=== PATIENT | male | born 1945 | race Caucasian/White ===

== ENCOUNTER 2023-02-06 15:02 | Inpatient (IN) ==
[2023-02-06] MEDS ORDERED: ALBUT/IPRATROP 3MG/0.5MG NEB 3 ML VIAL NEB STA (16:05)
[2023-02-06] MEDS ORDERED: CEFEPIME 2,000 MG/20 ML VIAL IV STA (16:06)
--- NOTE | 2023-02-06 16:25 | Emergency Department Note ---
Impression & Plan Pulmonary edema, Pneumonia, Acute non-ST elevation myocardial infarction (NSTEMI), Hypoxia, Respiratory failure, Acidosis, lactic, Acidosis, metabolic, COVID-19 virus infection ED Provider Note NAME: MAURICIO HALE AGE: 77 SEX: M : 1945 ARRIVES VIA: Ambulance INFORMANT: Patient, EMS report ED PROVIDER(S): Gregorio Garner DO CHIEF COMPLAINT: Difficulty breathing HPI: The patient is a 77-year-old male who presented to the emergency department for an evaluation of difficulty breathing. The patient was experiencing difficulty breathing over the course of the last few days. According to the prehospital personnel the patient has not left his bedroom in 2 days. There was no reported fall the patient was confused upon arrival and appeared to be in significant shortness of breath. He was tachypneic. He was covered in stool. ROS: See above HPI for pertinent positives & negatives. A total of 10 systems reviewed and were otherwise negative. PAST MEDICAL HISTORY: See Below PAST SURGICAL HISTORY: See Below FAMILY HISTORY: See Below SOCIAL HISTORY: See Below HOME MEDICATIONS: See Below ALLERGIES: See Below VITALS: See Below PHYSICAL EXAMINATION: GENERAL: The patient is awake and alert. He is very anxious appearing. EYES: The conjunctivae are clear. The pupils are round and reactive. EARS, NOSE, MOUTH AND THROAT: The nose is without any evidence of any deformity. NECK: The neck is nontender and supple. There is no JVD. RESPIRATORY: Diminished breath sounds are noted throughout. There is significant retractions. There is scattered wheezing in the upper lung mas. CARDIOVASCULAR: Regular rate and rhythm noted there no murmurs rubs or gallops normal S1 normal S2. GASTROINTESTINAL: The abdomen is soft. Abdomen is nontender. Stool was heme- negative. MUSCULOSKELETAL/EXTREMITIES: There is no evidence of gross deformity full range of motion is noted in the hips and shoulders. SKIN: Pedal edema was noted bilaterally. NEUROLOGIC: Patient is awake and oriented to person only. He was not oriented to place or situation. Strength was symmetric. MEDICAL DECISION MAKING: The patient is a 77-year-old male who presented to the emergency department for an evaluation of difficulty breathing. The patient reportedly had acute onset of symptoms but he was in bed for the last few days. Family members have been sick as well but they have also been in the hospital. This evening the patient's symptoms became much worse. He did not want to come to the hospital according to his son he was sent to the emergency room by ambulance. The patient has a DNR order that was reviewed by myself with the nursing staff as well as with the patient's son. He does not want intubation. The patient was treated with IV fluids. He was found have a lactic acidosis. His initial presentation appeared to be consistent more with pneumonia possible COPD exacerbation. EKG was revealing a right bundle branch block pattern which was not new but his troponin was very elevated. The patient was further treated in the emergency department with BiPAP. He was treated also with steroids and DuoNeb therapy. The patient's condition is very tenuous at this time but he seems to be holding his own. I discussed the patient's condition with the on- call [facility] hospitalist. They have agreed to evaluate the patient in the emergency department. Triage Nursing notes reviewed. Prior medical records reviewed Vital Signs: reviewed and remarkable for hypoxia and tachypnea Differential diagnosis: Reactive airway disease, pneumonia, pneumothorax, COPD, CHF, infections, cardiac ischemia, pulmonary embolism, musculoskeletal, gastrointestinal, as well as other pathologies. ER treatment provided: See below Diagnostics interpreted by me: ECG: EKG was obtained in the emergency department. My interpretation is sinus tachycardia 123 bpm. Right bundle branch block pattern was noted. This was compared to a tracing from December 19, 2021. The right bundle branch block pattern was present previously. Otherwise increased in the heart rate was noted. Cardiac Monitoring: An order was placed for continuous cardiac monitoring. The monitor shows a rate of 92 bpm with sinus rhythm. Laboratory studies: As stated above and show below. Imaging studies: See below. Radiographic imaging was reviewed by myself Consultation(s): Dr. Moses was notified about the patient. He will evaluate the patient in the emergency department ED COURSE: Procedures: none Critical Care: I have personally spent greater than 45 minutes of critical care time in the direct management of this patient. This includes bedside care, interpretation of diagnostic studies, and testing, discussion with consultants, patient, and family members, and other required patient management activities. This 45 minutes is in excess of all separately billable procedures. Past Med/Surg History Medical History HTN (hypertension) Fracture of transverse process of lumbar vertebra Multiple rib fractures Recurrent falls SAH (subarachnoid hemorrhage) Social History Smoking Status: Former smoker Feels Safe at Home: Yes Allergies Allergies Allergy/AdvReac Type Severity Reaction Status Date / Time No Known Allergies Allergy Verified 12/19/21 16:58 Home Meds Home Medications Medication Instructions Recorded Confirmed amlodipine 10 mg tablet 10 mg PO DAILY 12/19/21 12/19/21 aspirin 81 mg tablet,delayed 81 mg PO DAILY 12/19/21 12/19/21 release atenolol 25 mg tablet 25 mg PO DAILY 12/19/21 12/19/21 atorvastatin 80 mg tablet 80 mg PO HS 12/19/21 12/19/21 cholecalciferol (vitamin D3) 25 50 mcg PO DAILY 12/19/21 12/19/21 mcg (1,000 unit) capsule (Vitamin D3) docusate sodium 100 mg capsule 100 mg PO DAILY PRN Constipation 12/19/21 12/19/21 donepezil 5 mg tablet 5 mg PO HS 12/19/21 12/19/21 finasteride 5 mg tablet 5 mg PO DAILY 12/19/21 12/19/21 glatiramer 40 mg/mL subcutaneous 40 mg subcut 3XWK 12/19/21 12/19/21 syringe sertraline 100 mg tablet 100 mg PO DAILY 12/19/21 12/19/21 zolpidem 5 mg tablet (Ambien) 5 mg PO HS 12/19/21 12/19/21 Results & Data (ED) Vital Signs Vital Signs - 24 hr 02/06/23 15:02 02/06/23 15:11 02/06/23 15:20 Temperature 36.9 C Temperature Source Oral Pulse Rate 108 H 103 H 101 H Pulse Rate [Right Finger] Pulse Rate from SpO2 Sensor 100 H Respiratory Rate 30 H 29 H 27 H Respiratory Effort / Characteristics Non-Labored Respiratory Depth Normal Respiratory Pattern Regular Blood Pressure 162/115 H Blood Pressure [Right Arm] Blood Pressure Mean 130 Blood Pressure Mean [Right Arm] Pulse Oximetry 84 L 87 L Oxygen Delivery Method Room Air Fraction of Inspired Oxygen Sepsis Recent Fever Within 48 Hours Yes Sepsis New/Unexplained Change in Mental Status No Sepsis Action Taken by Nursing Physician Notified 02/06/23 15:30 02/06/23 15:40 02/06/23 15:50 Temperature Temperature Source Pulse Rate 97 H 96 H 101 H Pulse Rate [Right Finger] Pulse Rate from SpO2 Sensor 96 H 96 H 101 H Respiratory Rate 29 H 29 H 29 H Respiratory Effort / Characteristics Respiratory Depth Respiratory Pattern Blood Pressure Blood Pressure [Right Arm] Blood Pressure Mean Blood Pressure Mean [Right Arm] Pulse Oximetry 91 92 91 Oxygen Delivery Method Fraction of Inspired Oxygen Sepsis Recent Fever Within 48 Hours Sepsis New/Unexplained Change in Mental Status Sepsis Action Taken by Nursing 02/06/23 16:00 02/06/23 16:10 02/06/23 16:15 Temperature Temperature Source Pulse Rate 120 H 126 H Pulse Rate [Right Finger] Pulse Rate from SpO2 Sensor 118 H 127 H Respiratory Rate 22 23 Respiratory Effort / Characteristics Respiratory Depth Respiratory Pattern Blood Pressure Blood Pressure [Right Arm] Blood Pressure Mean Blood Pressure Mean [Right Arm] Pulse Oximetry 89 L 86 L Oxygen Delivery Method Fraction of Inspired Oxygen Sepsis Recent Fever Within 48 Hours Sepsis New/Unexplained Change in Mental Status Sepsis Action Taken by Nursing 02/06/23 16:20 02/06/23 16:25 02/06/23 16:25 Temperature Temperature Source Pulse Rate 121 H Pulse Rate [Right Finger] Pulse Rate from SpO2 Sensor 125 H 114 H Respiratory Rate 21 17 Respiratory Effort / Characteristics Respiratory Depth Respiratory Pattern Blood Pressure 147/101 H Blood Pressure [Right Arm] Blood Pressure Mean 117 Blood Pressure Mean [Right Arm] Pulse Oximetry 80 L 80 L Oxygen Delivery Method Fraction of Inspired Oxygen Sepsis Recent Fever Within 48 Hours Sepsis New/Unexplained Change in Mental Status Sepsis Action Taken by Nursing 02/06/23 16:30 02/06/23 16:40 02/06/23 16:50 Temperature Temperature Source Pulse Rate 120 H 115 H 112 H Pulse Rate [Right Finger] Pulse Rate from SpO2 Sensor 124 H 115 H 112 H Respiratory Rate 18 18 18 Respiratory Effort / Characteristics Respiratory Depth Respiratory Pattern Blood Pressure Blood Pressure [Right Arm] Blood Pressure Mean Blood Pressure Mean [Right Arm] Pulse Oximetry 78 L 79 L 64 L Oxygen Delivery Method Fraction of Inspired Oxygen Sepsis Recent Fever Within 48 Hours Sepsis New/Unexplained Change in Mental Status Sepsis Action Taken by Nursing 02/06/23 16:54 02/06/23 16:54 02/06/23 16:56 Temperature Temperature Source Pulse Rate 91 H Pulse Rate [Right Finger] Pulse Rate from SpO2 Sensor 90 Respiratory Rate 18 Respiratory Effort / Characteristics Respiratory Depth Respiratory Pattern Blood Pressure 101/68 100/82 Blood Pressure [Right Arm] Blood Pressure Mean 87 85 Blood Pressure Mean [Right Arm] Pulse Oximetry 63 L Oxygen Delivery Method Fraction of Inspired Oxygen Sepsis Recent Fever Within 48 Hours Sepsis New/Unexplained Change in Mental Status Sepsis Action Taken by Nursing 02/06/23 16:56 02/06/23 17:00 02/06/23 17:00 Temperature Temperature Source Pulse Rate 91 H 115 H Pulse Rate [Right Finger] Pulse Rate from SpO2 Sensor 90 115 H Respiratory Rate 17 22 Respiratory Effort / Characteristics Respiratory Depth Respiratory Pattern Blood Pressure 137/109 H Blood Pressure [Right Arm] Blood Pressure Mean 113 Blood Pressure Mean [Right Arm] Pulse Oximetry 64 L 93 Oxygen Delivery Method Fraction of Inspired Oxygen Sepsis Recent Fever Within 48 Hours Sepsis New/Unexplained Change in Mental Status Sepsis Action Taken by Nursing 02/06/23 17:10 02/06/23 17:18 02/06/23 17:18 Temperature Temperature Source Pulse Rate 107 H 98 H Pulse Rate [Right Finger] Pulse Rate from SpO2 Sensor 107 H 90 Respiratory Rate 34 H 16 Respiratory Effort / Characteristics Respiratory Depth Respiratory Pattern Blood Pressure 107/72 Blood Pressure [Right Arm] Blood Pressure Mean 82 Blood Pressure Mean [Right Arm] Pulse Oximetry 79 L 65 L Oxygen Delivery Method Fraction of Inspired Oxygen Sepsis Recent Fever Within 48 Hours Sepsis New/Unexplained Change in Mental Status Sepsis Action Taken by Nursing 02/06/23 17:20 02/06/23 17:30 02/06/23 17:31 Temperature Temperature Source Pulse Rate 98 H 95 H 90 Pulse Rate [Right Finger] Pulse Rate from SpO2 Sensor 99 H 95 H Respiratory Rate 18 16 18 Respiratory Effort / Characteristics Spontaneous Respiratory Depth Shallow Respiratory Pattern Blood Pressure Blood Pressure [Right Arm] Blood Pressure Mean Blood Pressure Mean [Right Arm] Pulse Oximetry 76 L 79 L 72 L Oxygen Delivery Method Fraction of Inspired Oxygen 100 Sepsis Recent Fever Within 48 Hours Sepsis New/Unexplained Change in Mental Status Sepsis Action Taken by Nursing 02/06/23 17:38 Temperature Temperature Source Pulse Rate Pulse Rate [Right Finger] 92 H Pulse Rate from SpO2 Sensor Respiratory Rate 32 H Respiratory Effort / Characteristics Gasping/Agonal Respiratory Depth Respiratory Pattern Blood Pressure Blood Pressure [Right Arm] 107/72 Blood Pressure Mean Blood Pressure Mean [Right Arm] 83 Pulse Oximetry 82 L Oxygen Delivery Method BiPAP Fraction of Inspired Oxygen Sepsis Recent Fever Within 48 Hours Sepsis New/Unexplained Change in Mental Status Sepsis Action Taken by Group Home Medications Current Medication List: was personally reviewed by wi Laboratory Data Attestation: I reviewed the patient's lab results. 02/06/23 16:15 02/06/23 16:15 Lab Results 02/06/23 02/06/23 02/06/23 Range/Units 16:09 16:15 16:27 WBC 13.26 H (4.8-10.8) K/ul RBC 4.42 L (4.70-6.10) M/uL Hgb 12.5 L (14.0-18.0) g/dl POC Hgb 12.9 L (14.0-18.0) g/dl Hct 39.7 L (42.0-52.0) % POC Hct 38 L (42-52) % MCV 89.8 (80.0-100.0) fL MCH 28.3 (25.0-34.0) pg MCHC 31.5 L (32.0-36.0) g/dL RDW Std Deviation 47.7 H (36.4-46.3) fL RDW Coeff of Karthikeyna 14.6 H (11.5-14.5) % Plt Count 202 (130-400) K/uL MPV 10.2 (9.4-12.4) fL Immature Gran % (Auto) 0.5 % Neut % (Auto) 87.8 % Lymph % (Auto) 6.1 % [place] % (Auto) 5.4 % Eos % (Auto) 0.0 % Baso % (Auto) 0.2 % Neut # (Auto) 11.65 H (1.40-6.50) K/uL Lymph # (Auto) 0.81 L (1.20-3.40) K/uL [place] # (Auto) 0.71 H (0.11-0.59) K/uL Eos # (Auto) 0.00 (0.00-0.50) K/uL Baso # (Auto) 0.03 (0.00-0.20) K/uL Immature Gran # (Auto) 0.06 (0.01-0.20) K/uL PT 11.9 (9.0-12.0) Seconds INR 1.1 (0.9-1.1) APTT 36 H (21-31) Seconds PTT Ratio 1.3 VBG pH (7.36-7.41) VBG pCO2 (38-50) mmHg VBG pO2 mmHg VBG HCO3 mmol/L VBG O2 Saturation % VBG Base Excess mEq/L POC Sodium 140 (135-144) mmol/L Sodium 140 (136-145) mmol/L POC Potassium 4.6 (3.3-5.0) mmol/L Potassium 4.6 (3.5-5.1) mmol/L POC Chloride 112 (101-112) mmol/L Chloride 108 H (98-107) mmol/L Carbon Dioxide 17 L (21-32) mmol/L POC Total CO2 18 L (24-31) mmol/L Anion Gap 15 H (3-11) POC Anion Gap 16.0 (16-25) mmol/L POC BUN 36 H (7-18) mg/dl BUN 40 H (6-23) mg/dl Creatinine 3.10 H (0.6-1.4) mg/dl POC Creatinine 3.4 H (0.6-1.3) mg/dl Est Cr Clr Drug Dosing Not Reportable Est GFR ( Amer) 21.0 ml/min Est GFR (Non-Af Amer) 18.1 ml/min BUN/Creatinine Ratio 12.9 (10-20) Glucose 146 H (70-99(Fasting)) mg/dl POC Glucose (other) 152 H (70-99) mg/dl Lactate 4.6 H* (0.4-2.0) mmol/L Calcium 10.4 H (8.6-10.3) mg/dl POC Ioniz Calcium Kylie 1.35 H (1.12-1.32) mmol/l Magnesium 2.0 (1.7-2.4) mg/dl Total Bilirubin 0.7 (0.2-1.0) mg/dl Direct Bilirubin 0.2 (0-0.2) mg/dl AST 94 H (13-39) U/L ALT 25 (7-52) U/L Alkaline Phosphatase 71 (34-104) U/L Total Creatine Kinase 1004 H (30-223) U/L Troponin I High Sens 77127.0 H* (0-20) pg/ml B-Natriuretic Peptide > 4700 H (0-100) pg/ml Total Protein 7.4 (6.0-8.3) gm/dl Albumin 4.3 (3.4-5.0) gm/dl Procalcitonin 0.45 (0-0.5) ng/ml Urine Color Yellow Urine Appearance Clear (Clear) Urine pH 5.0 (4.5-7.5) Ur Specific Bulger 1.021 (1.000-1.030) Urine Protein 3+ H (Negative) Urine Glucose (UA) Trace H (Negative) Urine Ketones Negative (Negative) Urine Blood 1+ H (Negative) Urine Nitrite Negative (Negative) Urine Bilirubin Negative (Negative) Urine Urobilinogen Negative (Negative) Ur Leukocyte Esterase Negative (Negative) Urine WBC (Auto) 10-30 H (0-5) /hpf Urine RBC (Auto) 0-4 (0-4) /hpf U Hyaline Cast (Auto) 5-10 H (0-5) /lpf U Epithel Cells (Auto) >30 H (0-5) /lpf Urine Bacteria (Auto) Negative (Negative) Urine Yeast Not Reportable Adenovirus (PCR) (NotDetected) B. pertussis DNA (PCR) (NotDetected) B.parapertussis DNA PCR (NotDetected) C. pneumoniae DNA (PCR) (NotDetected) Coronavirus OC43 (PCR) (NotDetected) Coronavirus HKU1 (PCR) (NotDetected) Coronavirus 229E (PCR) (NotDetected) SARS-CoV-2 (PCR) (NotDetected) Coronavirus NL63 (PCR) (NotDetected) Human Metapneumovir PCR (NotDetected) Influenza Type A (PCR) (NotDetected) Influenza Type B (PCR) (NotDetected) M. pneumoniae (PCR) (NotDetected) Parainfluenza 1 (PCR) (NotDetected) Parainfluenza 2 (PCR) (NotDetected) Parainfluenza 3 (PCR) (NotDetected) Parainfluenza 4 (PCR) (NotDetected) RSV (PCR) (NotDetected) Entero/Rhino (PCR) (NotDetected) 02/06/23 02/06/23 Range/Units 16:46 17:03 WBC (4.8-10.8) K/ul RBC (4.70-6.10) M/uL Hgb (14.0-18.0) g/dl POC Hgb (14.0-18.0) g/dl Hct (42.0-52.0) % POC Hct (42-52) % MCV (80.0-100.0) fL MCH (25.0-34.0) pg MCHC (32.0-36.0) g/dL RDW Std Deviation (36.4-46.3) fL RDW Coeff of Karthikeyan (11.5-14.5) % Plt Count (130-400) K/uL MPV (9.4-12.4) fL Immature Gran % (Auto) % Neut % (Auto) % Lymph % (Auto) % [place] % (Auto) % Eos % (Auto) % Baso % (Auto) % Neut # (Auto) (1.40-6.50) K/uL Lymph # (Auto) (1.20-3.40) K/uL [place] # (Auto) (0.11-0.59) K/uL Eos # (Auto) (0.00-0.50) K/uL Baso # (Auto) (0.00-0.20) K/uL Immature Gran # (Auto) (0.01-0.20) K/uL PT (9.0-12.0) Seconds INR (0.9-1.1) APTT (21-31) Seconds PTT Ratio VBG pH 7.05 L (7.36-7.41) VBG pCO2 61 H (38-50) mmHg VBG pO2 49 mmHg VBG HCO3 17 mmol/L VBG O2 Saturation 65.9 % VBG Base Excess -14.1 mEq/L POC Sodium (135-144) mmol/L Sodium (136-145) mmol/L POC Potassium (3.3-5.0) mmol/L Potassium (3.5-5.1) mmol/L POC Chloride (101-112) mmol/L Chloride (98-107) mmol/L Carbon Dioxide (21-32) mmol/L POC Total CO2 (24-31) mmol/L Anion Gap (3-11) POC Anion Gap (16-25) mmol/L POC BUN (7-18) mg/dl BUN (6-23) mg/dl Creatinine (0.6-1.4) mg/dl POC Creatinine (0.6-1.3) mg/dl Est Cr Clr Drug Dosing Est GFR ( Amer) ml/min Est GFR (Non-Af Amer) ml/min BUN/Creatinine Ratio (10-20) Glucose (70-99(Fasting)) mg/dl POC Glucose (other) (70-99) mg/dl Lactate (0.4-2.0) mmol/L Calcium (8.6-10.3) mg/dl POC Ioniz Calcium Kylie (1.12-1.32) mmol/l Magnesium (1.7-2.4) mg/dl Total Bilirubin (0.2-1.0) mg/dl Direct Bilirubin (0-0.2) mg/dl AST (13-39) U/L ALT (7-52) U/L Alkaline Phosphatase (34-104) U/L Total Creatine Kinase (30-223) U/L Troponin I High Sens (0-20) pg/ml B-Natriuretic Peptide (0-100) pg/ml Total Protein (6.0-8.3) gm/dl Albumin (3.4-5.0) gm/dl Procalcitonin (0-0.5) ng/ml Urine Color Urine Appearance (Clear) Urine pH (4.5-7.5) Ur Specific Bul[place] (1.000-1.030) Urine Protein (Negative) Urine Glucose (UA) (Negative) Urine Ketones (Negative) Urine Blood (Negative) Urine Nitrite (Negative) Urine Bilirubin (Negative) Urine Urobilinogen (Negative) Ur Leukocyte Esterase (Negative) Urine WBC (Auto) (0-5) /hpf Urine RBC (Auto) (0-4) /hpf U Hyaline Cast (Auto) (0-5) /lpf U Epithel Cells (Auto) (0-5) /lpf Urine Bacteria (Auto) (Negative) Urine Yeast Adenovirus (PCR) Not Detected (NotDetected) B. pertussis DNA (PCR) Not Detected (NotDetected) B.parapertussis DNA PCR Not Detected (NotDetected) C. pneumoniae DNA (PCR) Not Detected (NotDetected) Coronavirus OC43 (PCR) Not Detected (NotDetected) Coronavirus HKU1 (PCR) Not Detected (NotDetected) Coronavirus 229E (PCR) Not Detected (NotDetected) SARS-CoV-2 (PCR) DETECTED A* (NotDetected) Coronavirus NL63 (PCR) Not Detected (NotDetected) Human Metapneumovir PCR Not Detected (NotDetected) Influenza Type A (PCR) Not Detected (NotDetected) Influenza Type B (PCR) Not Detected (NotDetected) M. pneumoniae (PCR) Not Detected (NotDetected) Parainfluenza 1 (PCR) Not Detected (NotDetected) Parainfluenza 2 (PCR) Not Detected (NotDetected) Parainfluenza 3 (PCR) Not Detected (NotDetected) Parainfluenza 4 (PCR) Not Detected (NotDetected) RSV (PCR) Not Detected (NotDetected) Entero/Rhino (PCR) Not Detected (NotDetected) Administered Medications Discontinued Medications Albuterol (Albut/Ipratrop 3mg/0.5mg Neb 3 Ml Vial) 3 ml NEB NOW STA; Protocol Stop: 02/06/23 16:06 Last Admin: 02/06/23 16:32 Dose: 3 ml Documented By: GRETA Dexamethasone Sodium Phosphate (DexamethasonePf 10 Mg/Ml Vial) 10 mg IV NOW ONE Stop: 02/06/23 17:08 Last Admin: 02/06/23 17:25 Dose: 10 mg Documented By: GRETA Cefepime HCl (Maxipime) 2,000 mg in 20 mls @ 5 mls/min IV NOW STA; Protocol Stop: 02/06/23 16:09 Last Admin: 02/06/23 16:42 Dose: 5 mls/min Documented By: GRETA Sodium Chloride (Nss) 1,000 mls @ 999 mls/hr IV .[id number] ONE Stop: 02/06/23 17:36 Last Admin: 02/06/23 17:22 Dose: 999 mls/hr Documented By: GRETA Lorazepam (Lorazepam 1 Mg/1 Ml Syr Ed Inj Use) 1 mg IV ONE STA Stop: 02/06/23 16:32 Last Admin: 02/06/23 16:40 Dose: 1 mg Documented By: GRETA Imaging Data Attestation: I personally reviewed and interpreted this imaging study as follows: My Impression: 1 view chest x-ray was obtained in the emergency department. My interpretation is bilateral infiltrates with cardiomegaly. This could represent pneumonia versus asymmetric pulmonary edema, final report pending. Radiologist's Impression: Chest X-Ray 02/06/23 16:05 XR chest 1V portable HISTORY: Sepsis COMPARISON: Chest 12/19/2021. FINDINGS: No pneumothorax. The heart is mildly enlarged. There is interstitial thickening with patchy bilateral airspace opacities. Suspect a trace right pleural effusion. IMPRESSION: Interstitial thickening with patchy bilateral airspace opacities and a trace right pleural effusion. This likely represents a pneumonia. Superimposed pulmonary edema would be difficult to exclude. ACT 112: Negative or not required by law. Electronically signed by: Jacques Sharpe M.D. 02/06/2023 5:59 PM Discharge Plan Visit Data Chief Complaint: Illness Stated Complaint: RESP. DISTRESS, ILLNESS, FEVER ED Provider: Gregorio Garner Discharge Problem: Pulmonary edema, Pneumonia, Acute non-ST elevation myocardial infarction (NSTEMI), Hypoxia, Respiratory failure, Acidosis, lactic, Acidosis, metabolic, COVID-19 virus infection Patient Disposition: Being Evaluated by Hospitalist Forms Stand Alone Forms: My [facility] Prescriptions Prescriptions: No Action atorvastatin 80 mg Tablet 80 mg PO HS donepezil 5 mg Tablet 5 mg PO HS sertraline 100 mg Tablet 100 mg PO DAILY atenolol 25 mg Tablet 25 mg PO DAILY aspirin 81 mg Tablet,Delayed Release (Dr/Ec) 81 mg PO DAILY amlodipine 10 mg Tablet 10 mg PO DAILY docusate sodium 100 mg Capsule 100 mg PO DAILY PRN (Reason: Constipation) zolpidem [Ambien] 5 mg Tablet 5 mg PO HS finasteride 5 mg Tablet 5 mg PO DAILY cholecalciferol (vitamin D3) [Vitamin D3] 25 mcg (1,000 unit) Capsule 50 mcg PO DAILY glatiramer 40 mg/mL Syringe 40 mg SUBCUT [id number] Rx Instructions: WEDNESDAY, WEDNESDAY & FRIDAYS. Referrals Referrals: PCP,NO [Primary Care Provider] - Discharge Problem: Pulmonary edema Qualifiers: Chronicity: acute Qualified Code(s): J81.0 - Acute pulmonary edema Pneumonia Qualifiers: Pneumonia type: due to unspecified organism Laterality: bilateral Lung location: unspecified part of lung Qualified Code(s): J18.9 - Pneumonia, unspecified organism Respiratory failure Qualifiers: Chronicity: acute Respiratory failure complication: hypoxia and hypercapnia Q ualified Code(s): J96.01 - Acute respiratory failure with hypoxia
[2023-02-06 16:27] LABS: Appearance Urine Clear (Clear); Bacteria Urine Automated Negative (Negative); Bilirubin Urine Negative (Negative); Blood Urine 1+ (Negative); Color Urine Yellow; Epithelial Cell Urine Auto >30 /lpf (0-5); Glucose Urine UA Trace (Negative); Ketones Urine Negative (Negative); Leukocyte Esterase Urine Negative (Negative); Nitrite Urine Negative (Negative); Protein Urine 3+ (Negative); RBC Urine Automated 0-4 /hpf (0-4); Specific Gravity Urine 1.021 (1.000-1.030); Urobilinogen Urine Negative (Negative)
[2023-02-06] MEDS ORDERED: LORazepam 1 MG/1 ML SYR ED Inj Use IV STA (16:31)
[2023-02-06 16:35] LABS: Basophils # (auto) 0.03 K/uL (0.00-0.20); Basophils % (auto) 0.2 %; Hematocrit (blood only) 39.7 % (42.0-52.0); Hemoglobin 12.5 g/dl (14.0-18.0); Immature Granulocytes # (auto) 0.06 K/uL (0.01-0.20); Immature Granulocytes % (auto) 0.5 %; Lymphocytes # (auto) 0.81 K/uL (1.20-3.40); Lymphocytes % (auto) 6.1 %; Mean Corpuscular Hemoglobin 28.3 pg (25.0-34.0); Mean Corpuscular Hgb Conc 31.5 g/dL (32.0-36.0); Mean Corpuscular Volume 89.8 fL (80.0-100.0); Mean Platelet Volume 10.2 fL (9.4-12.4); Monocytes # (auto) 0.71 K/uL (0.11-0.59); Monocytes % (auto) 5.4 %; Neutrophils # (auto) 11.65 K/uL (1.40-6.50); Neutrophils % (auto) 87.8 %; Platelet Count 202 K/uL (130-400); RDW Coefficient of Variation 14.6 % (11.5-14.5); RDW Standard Deviation 47.7 fL (36.4-46.3); Red Blood Count 4.42 M/uL (4.70-6.10); White Blood Count 13.26 K/ul (4.8-10.8)
[2023-02-06] MEDS ORDERED: SODIUM CHLORIDE 0.9% 1,000 ML IV ONE (16:36)
[2023-02-06 16:39] LABS: iSTAT Creatinine 3.4 mg/dl (0.6-1.3); iSTAT Hemoglobin 12.9 g/dl (14.0-18.0); iSTAT Ionized Calcium 1.35 mmol/l (1.12-1.32); iSTAT Potassium 4.6 mmol/L (3.3-5.0)
[2023-02-06 16:53] LABS: Alanine Aminotransferase 25 U/L (7-52); Albumin Level 4.3 gm/dl (3.4-5.0); Alkaline Phosphatase 71 U/L (34-104); Anion Gap 15 (3-11); Aspartate Aminotransferase 94 U/L (13-39); BUN Creatinine Ratio 12.9 (10-20); Bilirubin Direct 0.2 mg/dl (0-0.2); Bilirubin,Total 0.7 mg/dl (0.2-1.0); Blood Urea Nitrogen 40 mg/dl (6-23); Calcium 10.4 mg/dl (8.6-10.3); Carbon Dioxide 17 mmol/L (21-32); Chloride 108 mmol/L (98-107); Est GFR (Non-African American) 18.1 ml/min; Glucose 146 mg/dl (70-99(Fasting)); Potassium 4.6 mmol/L (3.5-5.1); Sodium 140 mmol/L (136-145); Total Protein 7.4 gm/dl (6.0-8.3)
[2023-02-06 17:02] LABS: Base Excess VBG -14.1 mEq/L; HCO3 VBG 17 mmol/L; Oxygen Saturation VBG 65.9 %; PCO2 VBG 61 mmHg (38-50); PO2 VBG 49 mmHg; pH VBG 7.05 (7.36-7.41)
[2023-02-06 17:07] LABS: INR 1.1 (0.9-1.1); Partial Thromboplastin Ratio 1.3; Partial Thromboplastin Time 36 Seconds (21-31); Prothrombin Time 11.9 Seconds (9.0-12.0)
[2023-02-06] MEDS ORDERED: dexAMETHasone**PF** 10 MG/ML VIAL IV ONE (17:07)
[2023-02-06 17:52] LABS: Creatine Kinase 1004 U/L (30-223)
--- NOTE | 2023-02-06 18:00 | XRay Report ---
XR chest 1V portable HISTORY: Sepsis COMPARISON: Chest 12/19/2021. FINDINGS: No pneumothorax. The heart is mildly enlarged. There is interstitial thickening with patchy bilateral airspace opacities. Suspect a trace right pleural effusion. IMPRESSION: Interstitial thickening with patchy bilateral airspace opacities and a trace right pleural effusion. This likely represents a pneumonia. Superimposed pulmonary edema would be difficult to exclude. ACT 112: Negative or not required by law. Electronically signed by: Jacques Sharpe M.D. 02/06/2023 5:59 PM
[2023-02-06 18:01] LABS: Adenovirus PCR Not Detected (NotDetected); Bordetella parapertussis PCR Not Detected (NotDetected); Bordetella pertussis PCR Not Detected (NotDetected); Chlamydia pneumoniae PCR Not Detected (NotDetected); Coronavirus 229E PCR Not Detected (NotDetected); Coronavirus HKU1 PCR Not Detected (NotDetected); Coronavirus NL63 PCR Not Detected (NotDetected); Coronavirus OC43PCR Not Detected (NotDetected); Human Metapneumovirus PCR Not Detected (NotDetected); Influenza A PCR Not Detected (NotDetected); Influenza B PCR Not Detected (NotDetected); Mycoplasma pneumoniae PCR Not Detected (NotDetected); Parainfluenza Virus 1 PCR Not Detected (NotDetected); Parainfluenza Virus 2 PCR Not Detected (NotDetected); Parainfluenza Virus 3 PCR Not Detected (NotDetected); Parainfluenza Virus 4 PCR Not Detected (NotDetected); Respiratory Syncytial VirusPCR Not Detected (NotDetected); Rhinovirus/Enterovirus PCR Not Detected (NotDetected)
[2023-02-06 18:04] LABS: Coronavirus CoV-2 (COVID19)PCR DETECTED (NotDetected)
--- NOTE | 2023-02-06 22:29 | History & Physical Report ---
Date of Service February 06, 2023 Assessment & Plan (1) Comfort measures only status: Plan: Patient came in via BLS for generalized weakness, cough, and worsening SOB Accompanied by POLST form for DNR/DNI and noninvasive measures Hx of dementia + COVID on arrival CXR revealed interstitial thickening with patchy bilateral airspace opacities, that likely represented an overlying pneumonia BiPAP started in the ED Lactate 4.6-->4.6 BNP >4700 [place] [address].0 Spoke extensively with patient's son, both over the phone and in person, and re- confirmed that the patient would not like ICU level of care Agreed with family that the patient will be brought in on comfort measures Plan Patient is being brought in on comfort measures DNR/DNI History of Present Illness Chief Complaint: Illness Primary Care Provider: TANJA PCP Armando is a 77-year-old male with PMH of recurrent falls, MS, renal failure, dementia, HTN, pneumonia, and NSTEMI. Patient arrived via BLS for cough, fatigue, and generalized weakness that started the evening of 02/05. Patient was positive for COVID on arrival. Elevated lactate, troponin, BNP, creatinine kinase, WBC count on arrival. Patient was placed on BiPAP in the ED. He was unresponsive to stimuli at time of admission. He had an active POLST form for DNR/DNI. Called the patient's son (Armando) and discussed patient's wishes. We confirmed that, rather than ICU level of care and invasive procedures, patient would want comfort measures. ED course: BiPAP DuoNeb 3 mL Cefepime 2000 mg IV Ativan 1 mg IV Decadron 10 mg IV NSS 1000 mL IV ROS unobtainable in patient's current state; nonresponsive on BiPAP. Allergies Allergy/AdvReac Type Severity Reaction Status Date / Time No Known Allergies Allergy Verified 02/06/23 20:55 Home Medications Medication Instructions Recorded Confirmed Type amlodipine 10 mg tablet 10 mg PO DAILY 12/19/21 02/06/23 History atenolol 25 mg tablet 25 mg PO DAILY 12/19/21 02/06/23 History atorvastatin 80 mg tablet 80 mg PO HS 12/19/21 02/06/23 History cholecalciferol (vitamin D3) 25 50 mcg PO DAILY 12/19/21 02/06/23 History mcg (1,000 unit) capsule (Vitamin D3) finasteride 5 mg tablet 5 mg PO DAILY 12/19/21 02/06/23 History glatiramer 40 mg/mL subcutaneous 40 mg subcut 3XWK 12/19/21 02/06/23 History syringe sertraline 100 mg tablet 100 mg PO DAILY 12/19/21 02/06/23 History zolpidem 5 mg tablet (Ambien) 5 mg PO HS PRN Insomnia 12/19/21 02/06/23 History clonidine HCl 0.1 mg tablet 0.1 mg PO Q12H 02/06/23 02/06/23 History folic acid 1 mg tablet 1 mg PO DAILY 02/06/23 02/06/23 History hydralazine 25 mg tablet 75 mg PO BID 02/06/23 02/06/23 History losartan 25 mg tablet 25 mg PO DAILY 02/06/23 02/06/23 History Past Med/Surg History Medical History HTN (hypertension) Fracture of transverse process of lumbar vertebra Multiple rib fractures Recurrent falls SAH (subarachnoid hemorrhage) Social History Smoking Status: Former smoker Communication Ability: Unable Communication Ability Comment: obtunded Current Living Situation: Family Feels Safe at Home: Declines to Answer Assistive Devices: Hospital Bed Review of Systems Review of Systems: Unobtainable Physical Exam Physical Exam: General: Severe acute respiratory distress; on BiPAP; frail appearing; unresponsive to verbal commands and stimuli HEENT: normocephalic, atraumatic; eyes closed; dry mucus membrane; unable to assess vision or hearing Neck: supple; trachea midline Skin: warm, dry without signs of tenting; no rashes, bruising, lesions, or erythema noted CV: chest wall NTP; RRR; S1/S2 normal; no murmurs/rubs/gallops; pulses intact and symmetric at radial, DP, and PT Lungs: Labored breath sounds; acute respiratory distress; symmetrical chest wall expansion ABD: Soft, NTP; BS present MSK: no tics or fasciculations; no edema noted in the LEs b/l Neuro: Unresponsive to all stimuli; nonverbal; lethargic Results & Data Results & Data Vital Signs (Past 12 Hours) Vital Signs Temp Pulse Pulse Pulse Resp BP BP 02/06/23 21:30 84 02/06/23 21:27 86 14 02/06/23 20:30 83 14 80/56 L 02/06/23 20:00 84 14 87/45 L 02/06/23 19:02 84 14 82/66 L 02/06/23 17:38 92 H 32 H 107/72 02/06/23 17:31 90 18 02/06/23 17:30 95 H 16 02/06/23 17:20 98 H 18 02/06/23 17:18 98 H 16 02/06/23 17:18 107/72 02/06/23 17:10 107 H 34 H 02/06/23 17:00 137/109 H 02/06/23 17:00 115 H 22 02/06/23 16:56 91 H 17 02/06/23 16:56 100/82 02/06/23 16:54 101/68 02/06/23 16:54 91 H 18 02/06/23 16:50 112 H 18 02/06/23 16:40 115 H 18 02/06/23 16:30 120 H 18 02/06/23 16:25 147/101 H 02/06/23 16:25 121 H 17 02/06/23 16:20 21 02/06/23 16:15 126 H 02/06/23 16:10 23 02/06/23 16:00 120 H 22 02/06/23 15:50 101 H 29 H 02/06/23 15:40 96 H 29 H 02/06/23 15:30 97 H 29 H 02/06/23 15:20 101 H 27 H 02/06/23 15:11 103 H 29 H 02/06/23 15:02 36.9 C 108 H 30 H 162/115 H Pulse Ox O2 Del Method FiO2 02/06/23 21:30 02/06/23 21:27 87 L 100 02/06/23 20:30 89 L BiPAP 02/06/23 20:00 88 L BiPAP 02/06/23 19:02 88 L BiPAP 02/06/23 17:38 82 L BiPAP 02/06/23 17:31 72 L 100 02/06/23 17:30 79 L 02/06/23 17:20 76 L 02/06/23 17:18 65 L 02/06/23 17:18 02/06/23 17:10 79 L 02/06/23 17:00 02/06/23 17:00 93 02/06/23 16:56 64 L 02/06/23 16:56 02/06/23 16:54 02/06/23 16:54 63 L 02/06/23 16:50 64 L 02/06/23 16:40 79 L 02/06/23 16:30 78 L 02/06/23 16:25 02/06/23 16:25 80 L 02/06/23 16:20 80 L 02/06/23 16:15 02/06/23 16:10 86 L 02/06/23 16:00 89 L 02/06/23 15:50 91 02/06/23 15:40 92 02/06/23 15:30 91 02/06/23 15:20 87 L 02/06/23 15:11 02/06/23 15:02 84 L Room Air Laboratory Results Abnormal lab results 02/06/23 02/06/23 02/06/23 Range/Units 16:09 16:15 16:27 WBC 13.26 H (4.8-10.8) K/ul RBC 4.42 L (4.70-6.10) M/uL Hgb 12.5 L (14.0-18.0) g/dl POC Hgb 12.9 L (14.0-18.0) g/dl Hct 39.7 L (42.0-52.0) % POC Hct 38 L (42-52) % MCHC 31.5 L (32.0-36.0) g/dL RDW Std Deviation 47.7 H (36.4-46.3) fL RDW Coeff of Karthikeyan 14.6 H (11.5-14.5) % Neut # (Auto) 11.65 H (1.40-6.50) K/uL Lymph # (Auto) 0.81 L (1.20-3.40) K/uL Sac # (Auto) 0.71 H (0.11-0.59) K/uL APTT 36 H (21-31) Seconds VBG pH (7.36-7.41) VBG pCO2 (38-50) mmHg Chloride 108 H (98-107) mmol/L Carbon Dioxide 17 L (21-32) mmol/L POC Total CO2 18 L (24-31) mmol/L Anion Gap 15 H (3-11) POC BUN 36 H (7-18) mg/dl BUN 40 H (6-23) mg/dl Creatinine 3.10 H (0.6-1.4) mg/dl POC Creatinine 3.4 H (0.6-1.3) mg/dl Glucose 146 H (70-99(Fasting)) mg/dl POC Glucose (other) 152 H (70-99) mg/dl Lactate 4.6 H* (0.4-2.0) mmol/L Calcium 10.4 H (8.6-10.3) mg/dl POC Ioniz Calcium Kylie 1.35 H (1.12-1.32) mmol/l AST 94 H (13-39) U/L Total Creatine Kinase 1004 H (30-223) U/L Troponin I High Sens 32546.0 H* (0-20) pg/ml B-Natriuretic Peptide > 4700 H (0-100) pg/ml Urine Protein 3+ H (Negative) Urine Glucose (UA) Trace H (Negative) Urine Blood 1+ H (Negative) Urine WBC (Auto) 10-30 H (0-5) /hpf U Hyaline Cast (Auto) 5-10 H (0-5) /lpf U Epithel Cells (Auto) >30 H (0-5) /lpf SARS-CoV-2 (PCR) (NotDetected) 02/06/23 02/06/23 02/06/23 Range/Units 16:46 17:03 18:25 WBC (4.8-10.8) K/ul RBC (4.70-6.10) M/uL Hgb (14.0-18.0) g/dl POC Hgb (14.0-18.0) g/dl Hct (42.0-52.0) % POC Hct (42-52) % MCHC (32.0-36.0) g/dL RDW Std Deviation (36.4-46.3) fL RDW Coeff of Karthikeyan (11.5-14.5) % Neut # (Auto) (1.40-6.50) K/uL Lymph # (Auto) (1.20-3.40) K/uL Sac # (Auto) (0.11-0.59) K/uL APTT (21-31) Seconds VBG pH 7.05 L (7.36-7.41) VBG pCO2 61 H (38-50) mmHg Chloride (98-107) mmol/L Carbon Dioxide (21-32) mmol/L POC Total CO2 (24-31) mmol/L Anion Gap (3-11) POC BUN (7-18) mg/dl BUN (6-23) mg/dl Creatinine (0.6-1.4) mg/dl POC Creatinine (0.6-1.3) mg/dl Glucose (70-99(Fasting)) mg/dl POC Glucose (other) (70-99) mg/dl Lactate 4.6 H* (0.4-2.0) mmol/L Calcium (8.6-10.3) mg/dl POC Ioniz Calcium Kylie (1.12-1.32) mmol/l AST (13-39) U/L Total Creatine Kinase (30-223) U/L Troponin I High Sens 70659.2 H* (0-20) pg/ml B-Natriuretic Peptide (0-100) pg/ml Urine Protein (Negative) Urine Glucose (UA) (Negative) Urine Blood (Negative) Urine WBC (Auto) (0-5) /hpf U Hyaline Cast (Auto) (0-5) /lpf U Epithel Cells (Auto) (0-5) /lpf SARS-CoV-2 (PCR) DETECTED A* (NotDetected) Diagnostic Findings Chest X-Ray 02/06/23 16:05 XR chest 1V portable HISTORY: Sepsis COMPARISON: Chest 12/19/2021. FINDINGS: No pneumothorax. The heart is mildly enlarged. There is interstitial thickening with patchy bilateral airspace opacities. Suspect a trace right pleural effusion. IMPRESSION: Interstitial thickening with patchy bilateral airspace opacities and a trace right pleural effusion. This likely represents a pneumonia. Superimposed pulmonary edema would be difficult to exclude. ACT 112: Negative or not required by law. Electronically signed by: Jacques Sharpe M.D. 02/06/2023 5:59 PM Code Status & VTE Plan Code Status DNR/DNI via POLST; reconfirmed with son that patient's wishes were to be on comfort measures VTE Prophylaxis Plan VTE Prophylaxis will be ordered: No Supervising Physician Co-Signing Physician Notes Attending addendum: I have physically seen this patient, have supervised the MICHAEL's activities, and agree with the H&P unless as otherwise noted. Assessment and Plan: Acute respiratory failure with hypoxia/COVID 19/secondary bacterial pneumo chayo/CHF/cardiogenic shock- Patient was admitted to the hospital for comfort measures Son has been contacted, did commend hospital and see his father Troponin elevated, patient with CHF, Unsure contribution of positive COVID test He will be placed on COVID precautions to protect staff BiPAP is being changed to nonrebreather mask Standard comfort measures protocol orders completed PG Care Time/CCT Total # of Minutes Spent Total Time Spent with Patient: Total time spent is greater than 50% in coordination of care (as documented) at patient's floor/unit and/or counseling patient: [place] [address] INT INP/OBS CARE 2/55MIN Patient Type New Medical Decision Making Low Complexity Diagnoses Comfort measures only status Z51.5
[2023-02-07] MEDS ORDERED: MoRPHine SULFATE 2 MG/ML CARP IV PRN ×2 (00:08→00:35)
[2023-02-07] MEDS ORDERED: HYOSCYAMINE SULFATE 0.125 MG TAB SL PRN (00:35)
[2023-02-07] MEDS ORDERED: PROMETHAZINE HCL 12.5 MG in SODIUM CHLORIDE 0.9% 50 ML IV PRN (00:35)
[2023-02-07] MEDS ORDERED: LORazepam 0.5 MG in SYRINGE 0.25 ML IV PRN (00:35)
[2023-02-07] MEDS ORDERED: ONDANSETRON INJ 2 MG/ML 2 ML VIAL IV PRN (00:35)
--- NOTE | 2023-02-07 04:22 | Death Pronouncement Note ---
Date of Service February 07, 2023 Pronouncement Note Admission Date February 06, 2023 Date and Time of Date of : 02/07/23 Time of : 04:15 Contributing Factors Acute hypoxic respiratory failure secondary to pneumonia Summary Alerted by RN of pt's lack of heart sounds on auscultation. Evaluated pt who was found to be in a terminal state. Examination revealed absent heart sounds, breath sounds, no palpable pulse and lack of pupillary reflex. Pt pronounced at 4:15 AM on 02/07. Pt's son notified by phone. Additional Data Confirmation of : no pulse, no respirations, no heart sounds and pupils fixed and dilated Pronouncement Performed By: Resident Physician Family: contacted Attending/PCP notified?: Yes Attending physician: Sudeep Moura MD
--- NOTE | 2023-02-07 07:59 | Electrocardiogram Report ---
Test Reason : Blood Pressure : / mmHG Vent. Rate : 123 BPM Atrial Rate : 123 BPM P-R Int : 176 ms QRS Dur : 156 ms QT Int : 314 ms P-R-T Axes : 077 -66 094 degrees QTc Int : 449 ms Atrial flutter Right bundle branch block Left anterior fascicular block Bifascicular block Left ventricular hypertrophy with repolarization abnormality Poor R wave progression, consider anterior ND vs. lead placement vs. LVH Abnormal ECG When compared with ECG of 19-DEC-2021 12:25, Vent. rate has increased BY 63 BPM Atrial flutter has replaced sinus rhythm Nonspecific T wave abnormality no longer evident in Inferior leads Inverted T waves have replaced nonspecific T wave abnormality in Lateral leads Confirmed by El Laird [id number]) on 02/07/2023 7:58:30 AM Referred By: REFERRED SELF Confirmed By:Cachorro Laird
--- NOTE | 2023-02-07 20:06 | Discharge Summary ---
Date of Service February 07, 2023 Admission HPI Per Admitting Provider Armando is a 77-year-old male with PMH of recurrent falls, MS, renal failure, dementia, HTN, pneumonia, and NSTEMI. Patient arrived via BLS for cough, fatigue, and generalized weakness that started the evening of 02/05. Patient was positive for COVID on arrival. Elevated lactate, troponin, BNP, creatinine kinase, WBC count on arrival. Patient was placed on BiPAP in the ED. He was unresponsive to stimuli at time of admission. He had an active POLST form for DNR/DNI. Called the patient's son (Armando) and discussed patient's wishes. We confirmed that, rather than ICU level of care and invasive procedures, patient would want comfort measures. ED course: BiPAP DuoNeb 3 mL Cefepime 2000 mg IV Ativan 1 mg IV Decadron 10 mg IV NSS 1000 mL IV ROS unobtainable in patient's current state; nonresponsive on BiPAP. Principal Diagnosis Acute respiratory failure secondary to Covid and PNA Discharge Data Allergies Allergy/AdvReac Type Severity Reaction Status Date / Time No Known Allergies Allergy Verified 02/06/23 20:55 Consultations 02/06/23 17:50 ED Decision to Admit Stat Hospital Course (1) Comfort measures only status: Patient came in via BLS for generalized weakness, cough, and worsening SOB Accompanied by POLST form for DNR/DNI and noninvasive measures Hx of dementia + COVID on arrival CXR revealed interstitial thickening with patchy bilateral airspace opacities, that likely represented an overlying pneumonia BiPAP started in the ED Lactate 4.6-->4.6 BNP >47[address] [place] [address].0 Spoke extensively with patient's son, both over the phone and in person, and re- confirmed that the patient would not like ICU level of care Agreed with family that the patient will be brought in on comfort measures After admission on comfort measures, patient was pronounced at 0415 on 02/07 Plan Patient was brought in on comfort measures DNR/DNI Total Time Total Time Spent Total Time Spent (In Minutes): 15 Discharge Plan Discharge Items Patient Disposition: Other Date/Time: 02/07/23 03:33 Supervising Physician Co-Signing Physician Notes Attending addendum: I have physically seen this patient, have supervised the MICHAEL's activities, and agree with the H&P unless as otherwise noted. Assessment and Plan: Patient was admitted to the medical floor with comfort measures protocol, and as expected Coding Level of Care Code Established Pt INP/OBS EV SAME DAY LV 1,45MIN Patient Type Established Diagnoses Comfort measures only status Z51.5
== END 2023-02-07 04:50 | disposition expired | DRG 177 ==
LOC: ED 15:02 → EDINP 23:30 → 3E 02-07 00:36